=== PATIENT | male | born 1965 | race Caucasian/White ===

== ENCOUNTER 2020-05-12 19:10 | Emergency (ER) | payer MEDICAID, OTHER ==
[~2020-05-12] VITALS: Ht 167.6 cm; Wt 84.9 kg
[~2020-05-12 19:10] MED LIST: ACET-8386 PO; GABA300C PO; LOSA50TA57 PO; MAGN400T11 PO; METO50TE2 PO; NIFE30TA36 PO; PRO.5 PO; SYN.025 PO; TACR1CAP17 PO; TRAM50TA1 PO
[2020-05-12 19:42] VITALS: BP 211/130
--- NOTE | 2020-05-12 19:45 | NUR ---
This is a 54-year-old male presenting to the emergency department for acute onset, constant left lower back pain over the past 2 weeks. Pain is mild to moderate, nonradiating. Patient states that he took Tylenol which provided very minimal relief of his symptoms. Symptoms started at rest. He states that at the moment he is taking Nitric Oxide for his liver transplant and Gabapentin. Otherwise, no fevers, chills, nausea, vomiting, abdominal pain, back pain, shortness of breath, chest pain, trauma, or any other complaints. ALLERGY: NKA HX: HTN, LIVER TRANSPLANT 2016
--- NOTE | 2020-05-12 19:59 | NUR ---
Dr. Sotelo examining patient.
--- NOTE | 2020-05-12 20:01 | NUR ---
PT GOING TO CT SCAN.
[2020-05-12 20:25] LABS: BASOPHILS % (AUTO) 0.8 % (0.0-2.0); EOSINOPHILS # (AUTO) 0.1 K/uL (0-0.4); EOSINOPHILS % (AUTO) 1.8 % (0.0-4.0); HEMATOCRIT 49.5 % (36-52); HEMOGLOBIN 17.4 g/dL (12.0-18.0); LYMPHOCYTES # (AUTO) 1.2 K/uL (2.0-11.5); LYMPHOCYTES % (AUTO) 18.9 % (20.5-51.1); MEAN CORPUSCULAR HEMOGLOBIN 33 pg (27-31); MEAN CORPUSCULAR HGB CONC 35 g/dL (33-37); MEAN CORPUSCULAR VOLUME 93.6 fL (80-94); MONOCYTES # (AUTO) 0.4 K/uL (0.8-1.0); MONOCYTES % (AUTO) 6.9 % (1.7-9.3); NEUTROPHILS # (AUTO) 4.5 K/uL (1.8-7.7); NEUTROPHILS % (AUTO) 71.6 % (42.2-75.2); PLATELET COUNT (AUTO) 95 K/uL (140-450); RED BLOOD CELL COUNT(AUTO) 5.29 MIL/uL (4.20-6.10); RED CELL DISTRIBUTION WIDTH 13.5 % (11.6-13.7); WHITE BLOOD COUNT (AUTO) 6.3 K/uL (4.8-10.8)
[2020-05-12 20:47] LABS: ANION GAP 12.4 (8-16); CARBON DIOXIDE 24.5 mmol/L (21-32); CREATININE 1.4 mg/dL (0.6-1.3); POTASSIUM 3.9 mmol/L (3.5-5.1); TOTAL BILIRUBIN 0.8 mg/dL (0.0-1.0)
[2020-05-12] MEDS ORDERED: traMADol 50 MG TAB PO ONE (20:50)
--- NOTE | 2020-05-12 21:35 | NUR ---
MEDICATED THE PT FOR PAIN ORDERED. WILL RE ASSESS PT PAIN LATER.
--- NOTE | 2020-05-12 22:10 | NUR ---
Patient discharged with v/s stable. Written and verbal after care instructions given and explained. Patient alert, oriented and verbalized understanding of instructions. Ambulatory with steady gait. All questions addressed prior to discharge. ID band removed. Patient advised to follow up with PMD. Rx of NAPROSYN, ROBAXIN, MEDROL given. Patient educated on indication of medication including possible reaction and side effects. Opportunity to ask questions provided and answered.
[2020-05-12 23:14] VITALS: BP 148/86
== END 2020-05-12 22:10 | disposition home or self-care (01) ==
LOC: MED 19:10
DX: S39.012A Strain of muscle, fascia and tendon of lower back, initial encounter (principal); N28.9 Disorder of kidney and ureter, unspecified; I10 Essential (primary) hypertension; Z92.89 Personal history of other medical treatment; Z79.899 Other long term (current) drug therapy; X58.XXXA Exposure to other specified factors, initial encounter; Y93.89 Activity, other specified; Y92.89 Other specified places as the place of occurrence of the external cause; Y99.8 Other external cause status
CPT/HCPCS: 36415; 80053; 82140; 85025; 99284